=== PATIENT | female | born 1970 | race Two or more races ===

== ENCOUNTER 2024-02-03 18:54 | Inpatient (IN) | payer MEDICAID, OTHER ==
[~2024-02-03] VITALS: Ht 175.3 cm; Wt 104.1 kg
[2024-02-03 19:20] VITALS: O2SAT 95
[2024-02-03 19:27] LABS: Basophils # (auto) 0.1 10 ^3/uL (0-0.2); Basophils % (auto) 1.2 % (0.0-2.0); Eosinophils # (auto) 0 10 ^3/uL (0-0.8); Eosinophils % (auto) 0.5 % (0.0-7.0); Hematocrit 41.2 % (36.0-46.0); Lymphocytes # (auto) 2.2 10 ^3/uL (0.4-5.4); Lymphocytes % (auto) 32.1 % (10.0-50.0); Mean Corpuscular Hemoglobin 28.3 pg (28.0-32.0); Mean Corpuscular Hgb Conc. 33.9 g/dL (32.0-36.0); Mean Corpuscular Volume 83.5 fL (80.0-100.0); Monocytes # (auto) 0.8 10 ^3/uL (0-1.3); Monocytes % (auto) 11.3 % (0.0-12.0); Neutrophils # (auto) 3.8 10 ^3/uL (1.6-8.6); Neutrophils % (auto) 54.9 % (37.0-80.0); Nucleated Red Blood Cells % 0.1 %; Platelet Count (auto) 284 10^3/uL (140-450); Red Blood Cells 4.94 10^6/uL (4.0-5.20); Red Cell Distribution Width 13.8 % (11.8-14.3); White Blood Cell 6.8 10^3/uL (4.4-10.8)
[2024-02-03] MEDS: SODIUM CHLORIDE 0.9% 1,000 ML IVB ONE (19:30)
[2024-02-03 19:54] LABS: Alanine Aminotransferase 34 U/L (7-40); Albumin 3.9 g/dL (3.2-4.8); Alkaline Phosphatase 96 U/L (46-116); Anion Gap 5 (5-15); Aspartate Aminotransferase 26 U/L (13-40); BUN/Creatinine Ratio 23.5 (10.0-20.0); Blood Urea Nitrogen 12 mg/dL (9-23); Calcium 10.6 mg/dL (8.7-10.4); Carbon Dioxide 25 mmol/L (20-30); Chloride 106 mmol/L (98-107); Glucose 116 mg/dL (74-106); Potassium 4.2 mmol/L (3.5-5.1); Sodium 136 mmol/L (136-145)
[2024-02-03 19:55] LABS: Bilirubin, Total 0.5 mg/dL (0.2-1.0)
[2024-02-03] MEDS: KETOROLAC TROMETH 30 MG/ML 1ML VIAL IV ONE (20:51)
[2024-02-03] MEDS: ONDANSETRON HCL 4 MG/2 ML VIAL IV ONE (20:51)
[2024-02-03] MEDS: levoFLOXacin 500MG 100 ML IV ONE (21:49)
[2024-02-03] MEDS: metroNIDAZOLE 500MG/100ML 100 ML IV ONE (21:49)
[2024-02-03] MEDS: METOPROLOL TARTRATE 1MG/1ML-5ML VIAL IV SCH (22:15)
[2024-02-03] MEDS ORDERED: MORPHINE SULFATE INJ 2 MG/ml SYRG IV PRN (23:00)
[2024-02-03] MEDS ORDERED: ACETAMINOPHEN 325 MG TAB PO PRN (23:00)
[2024-02-03] MEDS: SODIUM CHLORIDE 0.9% 1,000 ML IV SCH (23:00)
[2024-02-03] MEDS ORDERED: DEXTROSE (50%) 50ML SYRG IV PRN (23:00)
[2024-02-04] MEDS: ACCU-CHEK COMFORT CURVE STRIP VI SCH
[2024-02-04] MEDS: InsuLIN REG 1unit/0.01ml Soln (100units/ml) SC SCH
[2024-02-04 03:22] LABS: Urine Bacteria None Seen /hpf (None Seen)
[2024-02-04 04:01] LABS: Urine Blood Negative /uL (Negative); Urine Clarity Turbid (Clear); Urine Color Yellow (Yellow); Urine Mucus FEW (None Seen); Urine Protein, UAD TRACE (Negative); Urine Specific Gravity 1.026 (1.001-1.035); Urine Urobilinogen 3 mg/dL (Negative); Urine WBC 19 /hpf (0 - 5); Urine pH 5.5 (5.0-9.0)
[2024-02-04] MEDS: ONDANSETRON HCL 4 MG/2 ML VIAL IV PRN (05:20)
[2024-02-04] MEDS: metroNIDAZOLE 500MG/100ML 100 ML IV SCH (06:06)
[2024-02-04] MEDS: dilTIAZem 25 MG/5 ML VIAL IV ONE (06:24)
[2024-02-04 06:34] LABS: Alanine Aminotransferase 25 U/L (7-40); Albumin 3.6 g/dL (3.2-4.8); Alkaline Phosphatase 80 U/L (46-116); Anion Gap 8 (5-15); Aspartate Aminotransferase 20 U/L (13-40); Blood Urea Nitrogen 14 mg/dL (9-23); Carbon Dioxide 23 mmol/L (20-30); Chloride 108 mmol/L (98-107); Glucose 114 mg/dL (74-106); Potassium 4.2 mmol/L (3.5-5.1); Sodium 139 mmol/L (136-145)
[2024-02-04 06:35] LABS: Bilirubin, Total 0.4 mg/dL (0.2-1.0); Total Protein 6.5 g/dL (5.7-8.2)
[2024-02-04 06:43] LABS: Basophils # (auto) 0 10 ^3/uL (0-0.2); Basophils % (auto) 0.2 % (0.0-2.0); Eosinophils # (auto) 0 10 ^3/uL (0-0.8); Eosinophils % (auto) 0.2 % (0.0-7.0); Hematocrit 36.7 % (36.0-46.0); Hemoglobin 12.6 g/dL (12.2-16.2); Lymphocytes # (auto) 1.7 10 ^3/uL (0.4-5.4); Mean Corpuscular Hemoglobin 28.8 pg (28.0-32.0); Mean Corpuscular Hgb Conc. 34.2 g/dL (32.0-36.0); Mean Corpuscular Volume 84.2 fL (80.0-100.0); Monocytes # (auto) 0.9 10 ^3/uL (0-1.3); Neutrophils # (auto) 5.2 10 ^3/uL (1.6-8.6); Neutrophils % (auto) 66.6 % (37.0-80.0); Nucleated Red Blood Cells % 0.1 %; Platelet Count (auto) 236 10^3/uL (140-450); Red Blood Cells 4.36 10^6/uL (4.0-5.20); Red Cell Distribution Width 13.9 % (11.8-14.3); White Blood Cell 7.9 10^3/uL (4.4-10.8)
[2024-02-04 06:53] LABS: Calcium 10.3 mg/dL (8.7-10.4)
[2024-02-04] MEDS: cefTRIAXone 1GM/50ML D5W 50 ML IV SCH (08:21)
[2024-02-04] MEDS: ENOXAPARIN SOD 40 MG/0.4 ML SYRINGE SC SCH (08:22)
[2024-02-04] MEDS: BENZTROPINE MESY 0.5 MG TAB PO SCH (08:22)
[2024-02-04 12:26] LABS: Amphetamine Screen, Urine Neg (NEGATIVE)
[2024-02-04 12:27] LABS: Barbiturate Scree,Urine Neg (NEGATIVE); Benzodiazephine Screen, Urine Neg (NEGATIVE); Cannabinoid Screen, Urine Neg (NEGATIVE); Cocaine Screen, Urine Neg (NEGATIVE); Opiate Scree,Urine Neg (NEGATIVE); Phencyclidine Screen, Urine Neg (NEGATIVE)
[2024-02-04 13:05] LABS: Erythrocyte Sedimentation Rate 26 mm/hr (0-20)
[2024-02-04] MEDS: HYDROcodone-ACET 5/325MG TAB PO PRN (13:11)
[2024-02-04] MEDS: HALOPERIDOL 1 MG TAB PO ONE (14:18)
[2024-02-04] MEDS: SODIUM CHLORIDE 0.9% 1,000 ML IV SCH (14:24)
[2024-02-04 20:13] VITALS: BP_SYST 135; BP_SYST 142; BP_DIAS 79; BP_DIAS 88; PULSE 112; PULSE 132; PULSE 133; RESP 20; TEMP 98; TEMP 98.3; O2SAT 95; O2SAT 98
[2024-02-04 21:00] VITALS: BP 151/61; PULSE 144; RESP 22; TEMP 99.4; O2SAT 92
[2024-02-04] MEDS: HALOPERIDOL 1 MG TAB PO SCH (21:12)
[2024-02-05] VITALS (8 sets, daily range): BP systolic 98–158; BP diastolic 55–79; PULSE 134–148; RESP 16–85; TEMP 98.2–98.7; O2SAT 92–98
[2024-02-05] MEDS: dilTIAZem 25 MG/5 ML VIAL IV ONE (05:18)
[2024-02-05] MEDS: METOPROLOL TARTRATE 1MG/1ML-5ML VIAL IV ONE (12:23)
[2024-02-05 13:56] LABS: Magnesium 1.4 mg/dL (1.6-2.6)
[2024-02-05 16:00] LABS: Free T3 > 20.00 pg/mL (2.3-4.2); Free T4 (Free Thyroxine) 7.22 ng/dL (0.89-1.76)
[2024-02-05] MEDS: MAGNESIUM SULFATE 1GM/100ML 100 ML IV SCH (16:00)
[2024-02-05 20:28] LABS: Amphetamine Screen, Urine Neg (NEGATIVE); Barbiturate Scree,Urine Neg (NEGATIVE); Benzodiazephine Screen, Urine Neg (NEGATIVE); Cocaine Screen, Urine Neg (NEGATIVE)
[2024-02-05 20:29] LABS: Cannabinoid Screen, Urine Neg (NEGATIVE); Opiate Scree,Urine Neg (NEGATIVE); Phencyclidine Screen, Urine Neg (NEGATIVE)
[2024-02-05] MEDS: PROPRANOLOL HCL 20 MG TAB PO SCH (22:22)
[2024-02-06] VITALS (7 sets, daily range): BP systolic 126–158; BP diastolic 62–92; PULSE 121–130; RESP 16–21; TEMP 98.1–98.6; O2SAT 92–96
[2024-02-06] MEDS: D5W/SOD CHLO 0.9% 1,000 ML IV SCH (16:41)
[2024-02-06] MEDS: methIMAzole 5 MG TAB PO SCH (16:41)
[2024-02-06] MEDS: PROPRANOLOL HCL 20 MG TAB PO SCH (16:42)
[2024-02-07] VITALS (8 sets, daily range): BP systolic 136–157; BP diastolic 60–77; PULSE 64–120; RESP 16–20; TEMP 97.8–98.2; O2SAT 93–96
[2024-02-07 07:20] LABS: Chloride 105 mmol/L (98-107); Potassium 3.5 mmol/L (3.5-5.1); Sodium 139 mmol/L (136-145)
[2024-02-07 07:21] LABS: Anion Gap 7 (5-15); Carbon Dioxide 27 mmol/L (20-30)
[2024-02-07 07:22] LABS: Calcium 10.2 mg/dL (8.7-10.4)
[2024-02-07 07:26] LABS: Glucose 120 mg/dL (74-106)
[2024-02-07 07:27] LABS: Blood Urea Nitrogen 9 mg/dL (9-23); Magnesium 1.4 mg/dL (1.6-2.6)
[2024-02-07] MEDS: METOCLOPRAMIDE HCL 5MG/ml INJ 2ml VIAL IV PRN (08:06)
[2024-02-07] MEDS: POTASSIUM EFFERVESENT TAB 25 MEQ PO ONE (09:28)
[2024-02-07] MEDS: PANTOPRAZOLE 40 MG/10 ML VIAL INJ IV SCH (09:28)
[2024-02-07] MEDS: MAGNESIUM SULFATE 1GM/100ML 100 ML IV SCH (09:29)
[2024-02-07 11:07] LABS: Thyroglobulin Antibody 8.9 IU/mL (0.0-0.9)
[2024-02-07] MEDS: MAGNESIUM SULFATE 1GM/100ML 100 ML IV ONE (14:22)
[2024-02-08] VITALS (9 sets, daily range): BP systolic 113–158; BP diastolic 51–76; PULSE 88–115; RESP 15–18; TEMP 97.4–98.6; O2SAT 93–97
[2024-02-08 07:04] LABS: Alanine Aminotransferase 23 U/L (7-40); Albumin 3.3 g/dL (3.2-4.8); Alkaline Phosphatase 84 U/L (46-116); Anion Gap 5 (5-15); BUN/Creatinine Ratio 16.2 (10.0-20.0); Blood Urea Nitrogen 6 mg/dL (9-23); Calcium 10.1 mg/dL (8.7-10.4); Carbon Dioxide 28 mmol/L (20-30); Chloride 106 mmol/L (98-107); Glucose 133 mg/dL (74-106); Magnesium 1.6 mg/dL (1.6-2.6); Potassium 3.8 mmol/L (3.5-5.1); Sodium 139 mmol/L (136-145)
[2024-02-08 07:05] LABS: Aspartate Aminotransferase 21 U/L (13-40); Bilirubin, Total 0.4 mg/dL (0.2-1.0); Total Protein 6.2 g/dL (5.7-8.2)
[2024-02-08 07:36] LABS: Basophils # (auto) 0 10 ^3/uL (0-0.2); Basophils % (auto) 0.3 % (0.0-2.0); Eosinophils # (auto) 0 10 ^3/uL (0-0.8); Eosinophils % (auto) 0.6 % (0.0-7.0); Hematocrit 33.4 % (36.0-46.0); Hemoglobin 11.5 g/dL (12.2-16.2); Lymphocytes # (auto) 1.8 10 ^3/uL (0.4-5.4); Lymphocytes % (auto) 30.6 % (10.0-50.0); Mean Corpuscular Hemoglobin 28.8 pg (28.0-32.0); Mean Corpuscular Hgb Conc. 34.4 g/dL (32.0-36.0); Mean Corpuscular Volume 83.6 fL (80.0-100.0); Monocytes # (auto) 0.8 10 ^3/uL (0-1.3); Monocytes % (auto) 12.7 % (0.0-12.0); Neutrophils # (auto) 3.3 10 ^3/uL (1.6-8.6); Neutrophils % (auto) 55.8 % (37.0-80.0); Nucleated Red Blood Cells % 0.2 %; Platelet Count (auto) 241 10^3/uL (140-450); Red Blood Cells 3.99 10^6/uL (4.0-5.20); Red Cell Distribution Width 13.7 % (11.8-14.3)
[2024-02-08] MEDS: MAGNESIUM OXIDE 400 MG TAB PO SCH (10:23)
[2024-02-09] VITALS (8 sets, daily range): BP systolic 118–160; BP diastolic 63–78; PULSE 102–120; RESP 18–22; TEMP 97.4–98.5; O2SAT 95–96
[2024-02-10] VITALS (7 sets, daily range): BP systolic 119–146; BP diastolic 53–64; PULSE 66–112; RESP 17–21; TEMP 97.5–98.3; O2SAT 92–100
[2024-02-11] VITALS (8 sets, daily range): BP systolic 109–140; BP diastolic 52–83; PULSE 100–112; RESP 16–20; TEMP 97.2–98.5; O2SAT 91–99
[2024-02-12] VITALS (8 sets, daily range): BP systolic 120–150; BP diastolic 55–87; PULSE 100–121; RESP 16–20; TEMP 97.5–98.4; O2SAT 93–96
[2024-02-12] MEDS: HALOPERIDOL 1 MG TAB ONE ×2 (09:05)
[2024-02-13] VITALS (7 sets, daily range): BP systolic 112–138; BP diastolic 62–70; PULSE 100–109; RESP 16–18; TEMP 97.6–98.3; O2SAT 94–98
[2024-02-13] MEDS ORDERED: METH-552 PO (10:54)
[2024-02-13] MEDS ORDERED: PROP1TAB53 PO (10:54)
== END 2024-02-13 14:27 | disposition home or self-care (01) | DRG 427 ==
LOC: ER 18:54 → TELE-EAST 23:20 → TELE 23:20 → TELE-EAST 02-04 18:28
PROVIDERS: ADMIT Nurse Practitioner; ATTEND Internal Medicine Geriatric Medicine
DX: E05.20 Thyrotoxicosis with toxic multinodular goiter without thyrotoxic crisis or storm (principal); D25.9 Leiomyoma of uterus, unspecified; K82.8 Other specified diseases of gallbladder; K57.32 Diverticulitis of large intestine without perforation or abscess without bleeding; F20.9 Schizophrenia, unspecified; E66.01 Morbid (severe) obesity due to excess calories; E83.42 Hypomagnesemia; E11.9 Type 2 diabetes mellitus without complications; G89.4 Chronic pain syndrome; F11.10 Opioid abuse, uncomplicated; Z79.899 Other long term (current) drug therapy; K80.20 Calculus of gallbladder without cholecystitis without obstruction; Z68.34 Body mass index [BMI] 34.0-34.9, adult
CPT/HCPCS: 36415; 71045; 74176; 74181; 76536; 76705; 78014; 78226; 80048; 80053; 80061; 80307; 81001; 82962; 83036; 83690; 83735; 84439; 84443; 84481; 84484; 85025; 85379; 85652; 86141; 86376; 86800; 93005; 93306; 96361; 96365; 96367; 96368; 96375; G0378; J1815; J1885; J1956; J2405; J2470; J3490

== ENCOUNTER 2024-03-05 18:11 | Emergency (ER) | payer MEDICAID ==
[~2024-03-05] VITALS: Ht 172.7 cm; Wt 93.0 kg
[~2024-03-05 18:11] MED LIST: METH-552 PO; PROP1TAB53 PO
[2024-03-05 18:42] VITALS: BP 114/69; PULSE 86; RESP 16; O2SAT 97
[2024-03-05] MEDS ORDERED: SODIUM CHLORIDE 0.9% 1,000 ML IV ONE (18:45)
[2024-03-05] MEDS ORDERED: MORPHINE SULFATE 4 MG/ML SYR/VIAL IV ONE (18:45)
[2024-03-05] MEDS ORDERED: ONDANSETRON HCL 4 MG/2 ML VIAL IV ONE (18:45)
[2024-03-05 19:07] LABS: Basophils # (auto) 0 10 ^3/uL (0-0.2); Basophils % (auto) 0.4 % (0.0-2.0); Eosinophils # (auto) 0 10 ^3/uL (0-0.8); Eosinophils % (auto) 0.3 % (0.0-7.0); Hematocrit 39.4 % (36.0-46.0); Hemoglobin 12.9 g/dL (12.2-16.2); Lymphocytes # (auto) 2.3 10 ^3/uL (0.4-5.4); Lymphocytes % (auto) 34.9 % (10.0-50.0); Mean Corpuscular Hemoglobin 27.1 pg (28.0-32.0); Mean Corpuscular Hgb Conc. 32.7 g/dL (32.0-36.0); Mean Corpuscular Volume 82.8 fL (80.0-100.0); Monocytes # (auto) 0.6 10 ^3/uL (0-1.3); Monocytes % (auto) 9.4 % (0.0-12.0); Neutrophils # (auto) 3.6 10 ^3/uL (1.6-8.6); Nucleated Red Blood Cells % 0.4 %; Platelet Count (auto) 321 10^3/uL (140-450); Red Blood Cells 4.76 10^6/uL (4.0-5.20); Red Cell Distribution Width 14.1 % (11.8-14.3); White Blood Cell 6.5 10^3/uL (4.4-10.8)
[2024-03-05 19:48] LABS: Alanine Aminotransferase 31 U/L (7-40); Albumin 4.1 g/dL (3.2-4.8); Alkaline Phosphatase 102 U/L (46-116); Anion Gap 13 (5-15); Aspartate Aminotransferase 48 U/L (13-40); BUN/Creatinine Ratio 11.1 (10.0-20.0); Bilirubin, Total 0.4 mg/dL (0.2-1.0); Blood Urea Nitrogen 7 mg/dL (9-23); Calcium 11.4 mg/dL (8.7-10.4); Carbon Dioxide 24 mmol/L (20-31); Chloride 107 mmol/L (98-107); Glucose 125 mg/dL (74-106); Lipase 26 U/L (12-53); Potassium 3.2 mmol/L (3.5-5.1); Sodium 144 mmol/L (136-145); Total Protein 7.6 g/dL (5.7-8.2)
== END 2024-03-05 21:14 | disposition left against medical advice (07) ==
LOC: ER 18:11
DX: R11.2 Nausea with vomiting, unspecified (principal); R10.9 Unspecified abdominal pain; Z53.21 Procedure and treatment not carried out due to patient leaving prior to being seen by health care provider
CPT/HCPCS: 36415; 80053; 83605; 83690; 84484; 85025